=== PATIENT | male | born 1955 | race Two or more races ===

== ENCOUNTER 2022-12-11 15:11 | Inpatient (IN) | payer OTHER ==
[~2022-12-11] VITALS: Ht 175.3 cm; Wt 70.3 kg
--- NOTE | 2022-12-11 15:25 | NUR ---
PACIENTE ALERTA Y ORIENTADO X3. REFIERE DOLOR EN DAVILA ESPALDA BAJA QUE SE IRRADIA HACIA EL FLANK DERECHO.
[2022-12-17] MEDS ORDERED: HYOSCYAMINE0.125 M1 SL (12:48)
[2022-12-17] MEDS ORDERED: TRAM1TAB98 PO (12:48)
[2022-12-17] MEDS ORDERED: PEPCID AC20 MG PO (12:48)
== END 2022-12-17 13:07 | disposition home or self-care (01) | DRG 331 ==
LOC: ER 15:11 → SURH 16:14
PROVIDERS: ADMIT Surgery; ATTEND Surgery
PROC: 0DBP4ZZ Excision of Rectum, Percutaneous Endoscopic Approach (ICD-10-PCS; 2022-12-14)
PROC: 07BB4ZZ Excision of Mesenteric Lymphatic, Percutaneous Endoscopic Approach (ICD-10-PCS; 2022-12-14)
PROC: 0DJD8ZZ Inspection of Lower Intestinal Tract, Via Natural or Artificial Opening Endoscopic (ICD-10-PCS; 2022-12-14)
PROC: 0DTN4ZZ Resection of Sigmoid Colon, Percutaneous Endoscopic Approach (ICD-10-PCS; principal; 2022-12-14 15:00)
DX: C19 Malignant neoplasm of rectosigmoid junction (principal); K92.89 Other specified diseases of the digestive system; K56.69 Other intestinal obstruction